=== PATIENT | male | born 1960 | race African-American/Black ===

== ENCOUNTER 2017-09-05 09:04 | Emergency (ER) | payer OTHER ==
[~2017-09-05] VITALS: Ht 182.9 cm; Wt 95.0 kg
[2017-09-05 09:05] VITALS: BP 184/105; PULSE 64; RESP 16; TEMP 97.7; O2SAT 100
[2017-09-05 09:07] VITALS: BP 174/99
[2017-09-05] MEDS ORDERED: TRAM50 PO (09:22)
[2017-09-05] MEDS ORDERED: MOBI15TA PO (09:22)
--- NOTE | 2017-09-05 09:22 | PD ---
HPI Chief Complaint: Musculoskeletal Complaint Time Seen by Provider: 09:15 Travel History International Travel<30 days: No Contact w/Intl Traveler<30days: No Traveled to known affect area: No History of Present Illness HPI 57-year-old male complains of right knee pain. Patient states that the pain started about 2 weeks ago. Patient doing a lot of labor work. Patient denies any direct injury to right knee. Patient states the pain is sharp pain localized to the medial aspect of the right knee. Patient denies any pain radiation. Patient states that the pain is worse with any movement. On a scale of 1-10 the pain is a 7. Patient denies any fever chills. Patient denies a history of rheumatoid arthritis or lupus. Patient denies any history of gout. PFSH Social History Alcohol Use: Yes (4 PACK BEER DAILY) Tobacco Use: Yes (1PPD) Substance Use: No Allergies-Medications (Allergen,Severity, Reaction): Coded Allergies: No Known Allergies (Unverified Adverse Reaction, Unknown, 09/05/17) Reported Meds & Prescriptions Reported Meds & Active Scripts Active Ultram (Tramadol HCl) 50 Mg Tab 50 Mg PO Q6H PRN Mobic (Meloxicam) 15 Mg Tab 15 Mg PO DAILY Review of Systems General / Constitutional: No: Fever Eyes: No: Visual changes HENT: No: Headaches Cardiovascular: No: Chest Pain or Discomfort Respiratory: No: Shortness of Breath Gastrointestinal: No: Abdominal Pain Genitourinary: No: Dysuria Musculoskeletal: Positive: Pain Skin: No Rash Neurologic: No: Weakness Psychiatric: No: Depression Endocrine: No: Polydipsia Hematologic/Lymphatic: No: Easy Bruising Physical Exam Narrative GENERAL: Well-nourished, well-developed patient. SKIN: Focused skin assessment warm/dry. HEAD: Normocephalic. EYES: No scleral icterus. No injection or drainage. NECK: Supple, trachea midline. No JVD or lymphadenopathy. CARDIOVASCULAR: Regular rate and rhythm without murmurs, gallops, or rubs. RESPIRATORY: Breath sounds equal bilaterally. No accessory muscle use. GASTROINTESTINAL: Abdomen soft, non-tender, nondistended. MUSCULOSKELETAL: No cyanosis, or edema. BACK: Nontender without obvious deformity. No CVA tenderness. Patient has moderate tenderness on palpation medial collateral ligament of the right knee. Full range of motion knee. Joints stable. No effusion noted. Data Data Last Documented VS Vital Signs Date Time Temp Pulse Resp B/P (MAP) Pulse Ox O2 Delivery O2 Flow Rate FiO2 09/05/17 09:07 174/99 (124) 09/05/17 09:05 97.7 64 16 100 Orders Orders Knee, Ltd (1 Or 2vws) (09/05/17 09:15) MDM Medical Decision Making Medical Screen Exam Complete: Yes Emergency Medical Condition: Yes Interpretation(s) Last Impressions Knee X-Ray 09/05/17914 Signed Impressions: Service Date/Time: Tuesday, September 05, 2017 09:25 - CONCLUSION: Mild osteoarthritis without fracture. Ciro Winston MD Differential Diagnosis Differential diagnosis including sprain, fracture, dislocation. Narrative Course 57-year-old male with right knee pain. Atraumatic. Roger wrap right knee. Diagnosis Primary Impression: Injury of ligament of right knee Qualified Codes: S89.91XA - Unspecified injury of right lower leg, initial encounter Patient Instructions: General Instructions Additional Instructions: Take medications as needed for pain. Follow up with an orthopedist if persistent problem. Med/Other Pt SpecificInfo: Prescription(s) given Scripts Tramadol (Ultram) 50 Mg Tab 50 MG PO Q6H Y for PAIN, #12 TAB 0 Refills Prov: Seng Alvarado MD 09/05/17 Meloxicam (Mobic) 15 Mg Tab 15 MG PO DAILY for Pain, #20 TAB 0 Refills Prov: Seng Alvarado MD 09/05/17 Disposition: 01 DISCHARGE HOME Condition: Stable Seng Alvarado MD Sep 05, 2017 09:22
--- NOTE | 2017-09-05 09:40 | RADRPT ---
EXAM DATE/TIME: 09/05/2017 09:25 [facility] COMPARISON: No previous studies available for comparison. INDICATIONS : Pain from twisting motion. MEDICAL HISTORY : None. SURGICAL HISTORY : None. ENCOUNTER: Initial ACUITY: 2 weeks PAIN SCORE: 5/10 LOCATION: Entire knee. FINDINGS: Two view examination of the right knee demonstrates no evidence of fracture or dislocation. Mild tri compartmental osteoarthritis. Bony mineralization is normal. The suprapatellar soft tissues have a n ormal configuration. CONCLUSION: Mild osteoarthritis without fracture. Ciro Winston MD on September 05, 2017 at 9:37 Board Certified Radiologist. This report was verified electronically.
== END 2017-09-05 10:11 | disposition home or self-care (01) ==
LOC: NEPD 09:04
DX: S89.91XA Unspecified injury of right lower leg, initial encounter (principal); M17.11 Unilateral primary osteoarthritis, right knee; F17.200 Nicotine dependence, unspecified, uncomplicated; X58.XXXA Exposure to other specified factors, initial encounter; Z79.899 Other long term (current) drug therapy
CPT/HCPCS: 73560; 99284

== ENCOUNTER 2017-09-27 17:18 | Observation (INO) | payer OTHER ==
[~2017-09-27] VITALS: Ht 185.4 cm; Wt 98.0 kg
[~2017-09-27 17:18] MED LIST: MOBI15TA PO; TRAM50 PO
[2017-09-27 17:21] VITALS: BP 175/105; PULSE 89; RESP 16; TEMP 98.5; O2SAT 97
--- NOTE | 2017-09-27 17:31 | PD ---
HPI Chief Complaint: Chest Pain Time Seen by Provider: 17:27 Travel History International Travel<30 days: No Contact w/Intl Traveler<30days: No Traveled to known affect area: No History of Present Illness HPI 57-year-old male with history of alcohol dependency, presents to emergency department for evaluation of left-sided chest pain acute onset 20 minutes ago. Patient states that it started substernally and then radiated across his left chest to his axilla area. It persisted for about 10 minutes. It was sharp and crushing in nature. He did not experience any lightheadedness or diaphoresis. He had no shortness of breath. He cannot think of any exacerbating or alleviating factors. He states he has experienced this one time before, but did not seek evaluation for it. Denies any recent illnesses, fever, or chills. He is currently not having any pain. Denies any illicit drug use. He has no other symptoms to report. PFSH Past Medical History Medical History: Denies Significant Hx Social History Alcohol Use: Yes (4 PACK BEER DAILY) Tobacco Use: Yes (1PPD) Substance Use: No Allergies-Medications (Allergen,Severity, Reaction): Coded Allergies: No Known Allergies (Unverified Adverse Reaction, Unknown, 09/27/17) Reported Meds & Prescriptions Reported Meds & Active Scripts Active Ultram (Tramadol HCl) 50 Mg Tab 50 Mg PO Q6H PRN Mobic (Meloxicam) 15 Mg Tab 15 Mg PO DAILY Review of Systems Except as stated in HPI: all other systems reviewed are Neg Physical Exam Narrative GENERAL: Well-nourished male patient, in no acute distress. SKIN: Focused skin assessment warm/dry. HEAD: Atraumatic. Normocephalic. EYES: Pupils equal and round. No scleral icterus. No injection or drainage. ENT: No nasal bleeding or discharge. Mucous membranes pink and moist. NECK: Trachea midline. No JVD. CARDIOVASCULAR: Regular rate and rhythm. No murmur appreciated. RESPIRATORY: No accessory muscle use. Clear to auscultation. Breath sounds equal bilaterally. GASTROINTESTINAL: Abdomen soft, non-tender, nondistended. Hepatic and splenic margins not palpable. MUSCULOSKELETAL: No obvious deformities. No clubbing. No cyanosis. No edema. NEUROLOGICAL: Awake and alert. No obvious cranial nerve deficits. Motor grossly within normal limits. Normal speech. PSYCHIATRIC: Appropriate mood and affect; insight and judgment normal. Data Data Last Documented VS Vital Signs Date Time Temp Pulse Resp B/P (MAP) Pulse Ox O2 Delivery O2 Flow Rate FiO2 09/27/17 18:50 79 20 176/99 (124) 100 Nasal Cannula 3.00 09/27/17 17:21 98.5 Orders Orders Electrocardiogram (09/27/17 17:31) Basic Metabolic Panel (Bmp) (09/27/17 17:31) Ckmb (Isoenzyme) Profile (09/27/17 17:31) Complete Blood Count With Diff (09/27/17 17:31) Magnesium (Mg) (09/27/17 17:31) Prothrombin Time / Inr (Pt) (09/27/17 17:31) Act Partial Throm Time (Ptt) (09/27/17 17:31) Troponin I (09/27/17 17:31) Lipase (09/27/17 17:31) Chest, Single Ap (09/27/17 17:31) Ecg Monitoring (09/27/17 17:31) Bilateral Bp Monitoring (09/27/17 17:31) Iv Access Insert/Monitor (09/27/17 17:31) Oximetry (09/27/17 17:31) Oxygen Administration (09/27/17 17:31) Aspirin Chew (Aspirin Chew) (09/27/17 17:45) Sodium Chloride 0.9% Flush (Ns Flush) (09/27/17 17:45) Sodium Chlor 0.9% 1000 Ml Inj (Ns 1000 M (09/27/17 17:45) CKMB (09/27/17 17:40) CKMB% (09/27/17 17:40) Sodium Chlor 0.9% 1000 Ml Inj (Ns 1000 M (09/27/17 19:00) Admit Order (Ed Use Only) (09/27/17 19:12) Activity Bed Rest With Brp (09/27/17 19:12) Notify Dr: Other .PRN (09/27/17 19:12) Notify Parameters (09/27/17 19:12) Resp Oxygen Nasal Cannula (09/27/17 ) Diet Npo (09/28/17 Breakfast) Diet Heart Healthy (09/27/17 Dinner) Ckmb (Isoenzyme) Profile (09/27/17 20:40) Ckmb (Isoenzyme) Profile (09/27/17 23:40) Troponin I (09/27/17 20:40) Troponin I (09/27/17 23:40) Electrocardiogram (09/27/17 20:40) Electrocardiogram (09/27/17 23:40) ^ Obtain (09/27/17 19:12) Sodium Chloride 0.9% Flush (Ns Flush) (09/27/17 19:15) Sodium Chloride 0.9% Flush (Ns Flush) (09/27/17 21:00) Acetaminophen (Tylenol) (09/27/17 19:15) Ondansetron Inj (Zofran Inj) (09/27/17 19:15) Nitroglycerin Sl (Nitrostat Sl) (09/27/17 19:15) Claim Inspector / Telemetry ABHINAV.Q8H (09/27/17 19:12) Bilateral/Knee High ABHINAV.QSHIFT (09/27/17 19:12) Vital Signs (Adult) Q4H (09/27/17 19:12) Cardiac Rhythm .As Directed (09/27/17 19:12) Labs Laboratory Tests Test 09/27/17 17:40 White Blood Count 7.4 TH/MM3 Red Blood Count 5.57 MIL/MM3 Hemoglobin 13.5 GM/DL Hematocrit 41.0 % Mean Corpuscular Volume 73.5 FL Mean Corpuscular Hemoglobin 24.3 PG Mean Corpuscular Hemoglobin Concent 33.0 % Red Cell Distribution Width 15.2 % Platelet Count 182 TH/MM3 Mean Platelet Volume 8.3 FL Neutrophils (%) (Auto) 59.3 % Lymphocytes (%) (Auto) 29.7 % Monocytes (%) (Auto) 10.4 % Eosinophils (%) (Auto) 0.1 % Basophils (%) (Auto) 0.5 % Neutrophils # (Auto) 4.4 TH/MM3 Lymphocytes # (Auto) 2.2 TH/MM3 Monocytes # (Auto) 0.8 TH/MM3 Eosinophils # (Auto) 0.0 TH/MM3 Basophils # (Auto) 0.0 TH/MM3 CBC Comment DIFF FINAL Differential Comment Prothrombin Time 9.9 SEC Prothromb Time International Ratio 1.0 RATIO Activated Partial Thromboplast Time 25.9 SEC Blood Urea Nitrogen 14 MG/DL Creatinine 1.00 MG/DL Random Glucose 119 MG/DL Calcium Level 9.0 MG/DL Magnesium Level 2.4 MG/DL Sodium Level 142 MEQ/L Potassium Level 3.9 MEQ/L Chloride Level 109 MEQ/L Carbon Dioxide Level 25.5 MEQ/L Anion Gap 8 MEQ/L Estimat Glomerular Filtration Rate 93 ML/MIN Total Creatine Kinase 541 U/L Creatine Kinase MB 5.3 NG/ML Creatine Kinase MB % 1.0 % Troponin I LESS THAN 0.02 NG/ML Lipase 408 U/L MDM Medical Decision Making Medical Screen Exam Complete: Yes Emergency Medical Condition: Yes Medical Record Reviewed: Yes Differential Diagnosis ACS versus chest wall pain versus pleuritic pain versus esophageal spasm versus pancreatitis Narrative Course 57-year-old male presents to emergency department for evaluation left-sided chest pain, lasting about 10 minutes that began about 20 minutes prior to arrival. Patient has no cardiac history. This has happened before but he did not seek follow-up. Currently he is having no pain. He appears well. He is hypertensive, and has been told this in the past however he takes no medication for this. Laboratory Tests Test 09/27/17 17:40 White Blood Count 7.4 TH/MM3 Red Blood Count 5.57 MIL/MM3 Hemoglobin 13.5 GM/DL Hematocrit 41.0 % Mean Corpuscular Volume 73.5 FL Mean Corpuscular Hemoglobin 24.3 PG Mean Corpuscular Hemoglobin Concent 33.0 % Red Cell Distribution Width 15.2 % Platelet Count 182 TH/MM3 Mean Platelet Volume 8.3 FL Neutrophils (%) (Auto) 59.3 % Lymphocytes (%) (Auto) 29.7 % Monocytes (%) (Auto) 10.4 % Eosinophils (%) (Auto) 0.1 % Basophils (%) (Auto) 0.5 % Neutrophils # (Auto) 4.4 TH/MM3 Lymphocytes # (Auto) 2.2 TH/MM3 Monocytes # (Auto) 0.8 TH/MM3 Eosinophils # (Auto) 0.0 TH/MM3 Basophils # (Auto) 0.0 TH/MM3 CBC Comment DIFF FINAL Differential Comment Prothrombin Time 9.9 SEC Prothromb Time International Ratio 1.0 RATIO Activated Partial Thromboplast Time 25.9 SEC Blood Urea Nitrogen 14 MG/DL Creatinine 1.00 MG/DL Random Glucose 119 MG/DL Calcium Level 9.0 MG/DL Magnesium Level 2.4 MG/DL Sodium Level 142 MEQ/L Potassium Level 3.9 MEQ/L Chloride Level 109 MEQ/L Carbon Dioxide Level 25.5 MEQ/L Anion Gap 8 MEQ/L Estimat Glomerular Filtration Rate 93 ML/MIN Total Creatine Kinase 541 U/L Creatine Kinase MB 5.3 NG/ML Creatine Kinase MB % 1.0 % Troponin I LESS THAN 0.02 NG/ML Lipase 408 U/L Last Impressions Chest X-Ray 09/27/17 1731 Signed Impressions: Service Date/Time: Wednesday, September 27, 2017 17:59 - CONCLUSION: Mild chronic cardiac silhouette enlargement. No acute cardiopulmonary disease identified. Onesimo Castillo MD Labs and radiology results are reviewed. I discussed this with my attending physician. We feel it is in his best interest to be admitted observation of the chest pain center for further evaluation and observation. Plan is discussed with the patient. He is concerned about missing work tomorrow, but at this time agrees with this plan of care. Diagnosis Primary Impression: Chest pain Qualified Codes: R07.9 - Chest pain, unspecified Admitting Information Admitting Physician Requests: Observation Condition: Stable NairMary valero LUIS EDUARDO Sep 27, 2017 17:31
[2017-09-27 17:35] VITALS: O2SAT 96
[2017-09-27] MEDS ORDERED: ASPIRIN 81 MG CHEW TAB PO ONE (17:45)
[2017-09-27] MEDS ORDERED: SODIUM CHLORIDE 0.9% FLUSH 10 ML FLUSH IVF PRN (17:45)
[2017-09-27] MEDS ORDERED: SODIUM CHLOR 0.9% 1000 ML INJ 1,000 ML IV ONE ×2 (17:45→19:00)
[2017-09-27 17:57] LABS: AUTOMATED NEUTROPHIL # 4.4 TH/MM3 (1.8-7.7); BASOPHIL % 0.5 % (0.0-2.0); EOSINOPHIL % 0.1 % (0.0-4.0); HEMOGLOBIN 13.5 GM/DL (13.0-17.0); LYMPH % 29.7 % (9.0-44.0); LYMPHOCYTE # 2.2 TH/MM3 (1.0-4.8); MEAN CELL VOLUME 73.5 FL (80.0-100.0); MEAN CORPUSCULAR HEMOGLOBIN 24.3 PG (27.0-34.0); MEAN PLATELET VOLUME 8.3 FL (7.0-11.0); MONO % 10.4 % (0.0-8.0); MONOCYTE # 0.8 TH/MM3 (0-0.9); NEUT % 59.3 % (16.0-70.0); PLATELET COUNT 182 TH/MM3 (150-450); RED BLOOD COUNT 5.57 MIL/MM3 (4.50-5.90); RED CELL DISTRIBUTION WIDTH 15.2 % (11.6-17.2); WHITE BLOOD COUNT 7.4 TH/MM3 (4.0-11.0)
[2017-09-27 18:06] LABS: PROTHROMBIN TIME - PATIENT 9.9 SEC (9.8-11.6)
[2017-09-27 18:24] LABS: TROPONIN I LESS THAN 0.02 NG/ML (0.02-0.05)
--- NOTE | 2017-09-27 18:24 | RADRPT ---
EXAM DATE/TIME: 09/27/2017 17:59 [facility] COMPARISON: CHEST SINGLE AP, February 02, 2014, 16:13. INDICATIONS : Chest pain starting today MEDICAL HISTORY : None. SURGICAL HISTORY : None. ENCOUNTER: Initial ACUITY: 1 day PAIN SCORE: 5/10 LOCATION: Bilateral chest FINDINGS: Single AP view of the chest. The lungs are clear. Mild cardiac silhouette enlargement unchanged. No e vidence of pleural effusion or pneumothorax. CONCLUSION: Mild chronic cardiac silhouette enlargement. No acute cardiopulmonary disease iden tified. Onesimo Castillo MD on September 27, 2017 at 18:21 Board Certified Radiologist. This report was verified electronically.
[2017-09-27 18:48] LABS: BICARBONATE 25.5 MEQ/L (21.0-32.0); BLOOD UREA NITROGEN 14 MG/DL (7-18); CHLORIDE 109 MEQ/L (98-107); GLOMERULAR FILTRATION RATE 93 ML/MIN (>89); GLUCOSE,RANDOM 119 MG/DL (74-106); LIPASE 408 U/L (73-393); MAGNESIUM 2.4 MG/DL (1.5-2.5); SODIUM (NA) 142 MEQ/L (136-145)
[2017-09-27 18:50] VITALS: BP 176/99; O2SAT 100
[2017-09-27] MEDS ORDERED: ONDANSETRON HCL 4 MG/2 ML VIAL IV PUSH PRN (19:15)
[2017-09-27] MEDS ORDERED: NITROGLYCERIN 0.4 MG SL 25 TABS/BTL SL PRN (19:15)
[2017-09-27] MEDS ORDERED: ACETAMINOPHEN 500 MG CPLT PO PRN (19:15)
[2017-09-27] MEDS ORDERED: SODIUM CHLORIDE 0.9% FLUSH 10 ML FLUSH IV FLUSH PRN (19:15)
[2017-09-27 20:00] VITALS: O2SAT 98
[2017-09-27] MEDS: SODIUM CHLORIDE 0.9% FLUSH 10 ML FLUSH IV FLUSH SCH (21:00)
[2017-09-27 21:03] VITALS: BP 163/96; PULSE 70; RESP 18; TEMP 97.4; O2SAT 98
[2017-09-27 21:16] VITALS: PULSE 59
[2017-09-27 21:53] LABS: TROPONIN I LESS THAN 0.02 NG/ML (0.02-0.05)
[2017-09-28] VITALS (10 sets, daily range): BP systolic 154–200; BP diastolic 91–110; PULSE 55–81; RESP 18; TEMP 98–98.5; O2SAT 95–99
[2017-09-28 00:57] LABS: TROPONIN I LESS THAN 0.02 NG/ML (0.02-0.05)
[2017-09-28] MEDS ORDERED: amLODIPine BESYLATE 5 MG TAB PO SCH (05:45)
--- NOTE | 2017-09-28 07:52 | EKG ---
Date Performed: 09/27/2017 Time Performed: 17:33:57 PTAGE: 57 years EKG: Sinus rhythm WITH FIRST DEGREE AV BLOCK ABNORMAL ECG Since PREVIOUS TRACING , no significant change noted PREVIOUS TRACIN02/02/2014 16.12 DOCTOR: Reba Vera Interpretating Date/Time 09/28/2017 07:50:38
--- NOTE | 2017-09-28 07:53 | EKG ---
Date Performed: 09/27/2017 Time Performed: 21:18:56 PTAGE: 57 years EKG: Sinus rhythm WITH FIRST DEGREE AV BLOCK MINIMAL VOLTAGE CRITERIA FOR LVH, CONSIDER NORMAL VARIANT ABNORMAL ECG Si nce PREVIOUS TRACING , no significant change noted PREVIOUS TRACIN09/27/2017 17.33 DOCTOR: Reba Vera Interpretating Date/Time 09/28/2017 07:51:36
--- NOTE | 2017-09-28 07:55 | EKG ---
Date Performed: 09/28/2017 Time Performed: 00:03:39 PTAGE: 57 years EKG: Sinus rhythm NORMAL ECG Since PREVIOUS TRACING , no significant change noted PREVIOUS TRACIN09/27/2017 21.18 DOCTOR: Reba Vera Interpretating Date/Time 09/28/2017 07:53:11
--- NOTE | 2017-09-28 08:58 | HHI.HP ---
HPI Primary Care Physician No Primary Care Physician Chief Complaint Chest pain History of Present Illness This is a 57-year-old male that presents to ED via private vehicle with a complaint of developing a right-sided chest discomfort yesterday lasted between 30 seconds and 2 minutes. Had no associated shortness breath, nausea, or diaphoresis. He was on not doing any activity when this occurred. Has history of any exertional discomfort. Had no other symptoms. The discomfort has not recurred. Denies recent illness. Denies fevers or chills. He denies history of hypertension however he has been quite hypertensive since being in the ED. Initial blood pressure was 135 or 105 with highest being 192 or 110. Most recent blood pressure reading is 180/108. Patient smokes one plus pack of cigarettes daily. Denies nausea hyperlipidemia, diabetes, CAD. Cannot recall ever having a stress test. Denies family history of CAD. Denies recent illness. Denies recent travel. Review of Systems General: Patient denies fevers, chills recent, and recent travel HEENT: Patient denies headache, sore throat, difficulty swallowing. Cardiovascular: Has the chest discomfort as mentioned above. Denies sensation of heart beating rapidly or irregularly. No syncope. Denies diaphoresis. Respiratory: Denies shortness of breath or inspirational chest discomfort. Denies coughing wheezing or hemoptysis. GI: Patient denies nausea, vomiting, diarrhea, abdominal pain, bloody stools. Musculoskeletal: Patient denies joint pain or edema. Denies calf pain or edema. Neurovascular: Patient denies numbness, tingling, weakness in extremities. Denies headache. Endocrine: Denies polyuria and polydipsia. Hematologic: Denies easy bruising. Skin: Denies rash or itching. Past Family Social History Allergies: Coded Allergies: No Known Allergies (Unverified Adverse Reaction, Unknown, 09/27/17) Past Medical History Denies hypertension, hyperlipidemia, diabetes, or CAD. Patient continues to abuse tobacco products. Past Surgical History Noncontributory. Reported Medications Reported Meds & Active Scripts Active Ultram (Tramadol HCl) 50 Mg Tab 50 Mg PO Q6H PRN Mobic (Meloxicam) 15 Mg Tab 15 Mg PO DAILY Active Ordered Medications Current Medications Medications (Trade) Dose Ordered Sig/Emanuel Route Start Time Stop Time Status Last Admin (NS Flush) 2 ml UNSCH PRN IVF 09/27/17 17:45 (NS Flush) 2 ml UNSCH PRN IV FLUSH 09/27/17 19:15 (NS Flush) 2 ml BID IV FLUSH 09/27/17 21:00 09/27/17 21:00 (Tylenol) 500 mg Q4H PRN PO 09/27/17 19:15 (Zofran Inj) 4 mg Q6H PRN IV PUSH 09/27/17 19:15 (Nitrostat Sl) 0.4 mg Q5M PRN SL 09/27/17 19:15 (Norvasc) 10 mg DAILY PO 09/28/17 09:00 09/28/17 08:23 Family History Denies family history of CAD. Social History Smokes little more than a pack of cigarettes daily for 35 years. Has on average 4 beers a day. Denies illicit drugs. Physical Exam Vital Signs Vital Signs Date Time Temp Pulse Resp B/P (MAP) Pulse Ox O2 Delivery O2 Flow Rate FiO2 09/28/17 07:11 98.0 81 18 180/108 (132) 98 09/28/17 04:35 98.5 72 18 192/110 (137) 96 09/28/17 03:55 71 09/28/17 00:50 98.2 79 18 154/91 (112) 95 09/28/17 00:48 77 09/27/17 21:16 59 09/27/17 21:03 97.4 70 18 163/96 (118) 98 09/27/17 20:00 98 Nasal Cannula 2.00 09/27/17 18:50 79 20 176/99 (124) 100 Nasal Cannula 3.00 09/27/17 17:35 96 Room Air 09/27/17 17:35 96 Room Air 09/27/17 17:21 98.5 89 16 175/105 (128) 97 Physical Exam GENERAL: This is a well-nourished, well-developed patient, in no apparent distress. Patient speaks in clear complete sentences. Patient is pleasant. HEENT: Head is atraumatic and normocephalic. Neck is supple without lymphadenopathy and trachea is midline. No JVD or carotid bruits. CARDIOVASCULAR: Regular rate and rhythm without murmurs, gallops, or rubs. RESPIRATORY: Expiratory wheezes at the bases that cleared after coughing. Breath sounds equal bilaterally. No rales, or rhonchi. Chest wall is nontender. No use of accessory muscles. GASTROINTESTINAL: Abdomen is nontender, nondistended. Abdomen soft. No obvious pulsatile mass or bruit. No CVA tenderness. Strong femoral pulses bilaterally. Normal bowel sounds in all quadrants. MUSCULOSKELETAL: Patient is moving upper and lower extremities freely. No calf tenderness or edema, no Homans sign. Strong pulses in upper and lower extremities. NEUROLOGICAL: Patient is alert and oriented. Cranial nerves 2-12 are grossly intact. No focal deficits and speech is clear. SKIN: No rash and turgor is normal. Laboratory Laboratory Tests Test 09/27/17 17:40 09/27/17 20:50 09/28/17 00:30 White Blood Count 7.4 Red Blood Count 5.57 Hemoglobin 13.5 Hematocrit 41.0 Mean Corpuscular Volume 73.5 Mean Corpuscular Hemoglobin 24.3 Mean Corpuscular Hemoglobin Concent 33.0 Red Cell Distribution Width 15.2 Platelet Count 182 Mean Platelet Volume 8.3 Neutrophils (%) (Auto) 59.3 Lymphocytes (%) (Auto) 29.7 Monocytes (%) (Auto) 10.4 Eosinophils (%) (Auto) 0.1 Basophils (%) (Auto) 0.5 Neutrophils # (Auto) 4.4 Lymphocytes # (Auto) 2.2 Monocytes # (Auto) 0.8 Eosinophils # (Auto) 0.0 Basophils # (Auto) 0.0 CBC Comment DIFF FINAL Differential Comment Prothrombin Time 9.9 Prothromb Time International Ratio 1.0 Activated Partial Thromboplast Time 25.9 Blood Urea Nitrogen 14 Creatinine 1.00 Random Glucose 119 Calcium Level 9.0 Magnesium Level 2.4 Sodium Level 142 Potassium Level 3.9 Chloride Level 109 Carbon Dioxide Level 25.5 Anion Gap 8 Estimat Glomerular Filtration Rate 93 Total Creatine Kinase 541 524 414 Creatine Kinase MB 5.3 4.6 4.2 Creatine Kinase MB % 1.0 0.9 1.0 Troponin I LESS THAN 0.02 LESS THAN 0.02 LESS THAN 0.02 Lipase 408 Result Diagram: 09/27/17 17409/27/17 174 Imaging Last 48 hours Impressions Chest X-Ray 09/27/17 1731 Signed Impressions: Service Date/Time: Wednesday, September 27, 2017 17:59 - CONCLUSION: Mild chronic cardiac silhouette enlargement. No acute cardiopulmonary disease identified. Onesimo Castillo MD Course EKGs have been sinus rhythm without significant ST segment depressions or elevations. Caprini VTE Risk Assessment Caprini VTE Risk Assessment: No/Low Risk (score <= 1) Caprini Risk Assessment Model Point Value = 1 Point Value = 2 Point Value = 3 Point Value = 5 Age 41-60 Minor surgery BMI > 25 kg/m2 Swollen legs Varicose veins or History of unexplained or recurrent spontaneous Oral contraceptives or hormone replacement Sepsis (< 1 month) Serious lung disease, including pneumonia (< 1 month) Abnormal pulmonary function Acute myocardial infarction Congestive heart failure (< 1 month) History of inflammatory bowel disease Medical patient at bed rest Age 61-74 Arthroscopic surgery Major open surgery (> 45 min) Laparoscopic surgery (> 45 min) Malignancy Confined to bed (> 72 hours) Immobilizing plaster cast Central venous access Age >= 75 History of VTE Family history of VTE Factor V Leiden Prothrombin [id number] Lupus anticoagulant Anticardiolipin antibodies Elevated serum homocysteine Heparin-induced thrombocytopenia Other congenital or acquired thrombophilia Stroke (< 1 month) Elective arthroplasty Hip, pelvis, or leg fracture Acute spinal cord injury (< 1 month) Prophylaxis Regimen Total Risk Factor Score Risk Level Prophylaxis Regimen 0-1 Low Early ambulation 2 Moderate Order ONE of the following: *Sequential Compression Device (SCD) *Heparin 5000 units SQ BID 3-4 Higher Order ONE of the following medications: *Heparin 5000 units SQ TID *Enoxaparin/Lovenox 40 mg SQ daily (WT < 150 kg, CrCl > 30 mL/min) *Enoxaparin/Lovenox 30 mg SQ daily (WT < 150 kg, CrCl > 10-29 mL/min) *Enoxaparin/Lovenox 30 mg SQ BID (WT < 150 kg, CrCl > 30 mL/min) AND/OR *Sequential Compression Device (SCD) 5 or more Highest Order ONE of the following medications: *Heparin 5000 units SQ TID (Preferred with Epidurals) *Enoxaparin/Lovenox 40 mg SQ daily (WT < 150 kg, CrCl > 30 mL/min) *Enoxaparin/Lovenox 30 mg SQ daily (WT < 150 kg, CrCl > 10-29 mL/min) *Enoxaparin/Lovenox 30 mg SQ BID (WT < 150 kg, CrCl > 30 mL/min) AND *Sequential Compression Device (SCD) Assessment and Plan Assessment and Plan * Chest pain: Patient has had serial cardiac enzymes and EKGs for ruling out purposes. He has been seen by Dr. Vera cardiology and the chest pain center and will undergo a Jluis protocol ETT after his blood pressure is under control. He'll be discharged home if the stress test was nonischemic with instructions to follow-up with PCP and return to ED for interval issues. * Hypertension: We'll start amlodipine. He will need to follow-up with PCP. * Tobacco abuse: Patient has been counseled on importance of smoking cessation. Patient is stable time. He is agreeable to this plan. Qasim Mansfield Sep 28, 2017 08:58
[2017-09-28] MEDS: SODIUM CHLORIDE 0.9% FLUSH 10 ML FLUSH IV FLUSH SCH (09:22)
[2017-09-28] MEDS ORDERED: cloNIDine HCL 0.1 MG TAB PO ONE ×2 (09:30→11:15)
[2017-09-28] MEDS ORDERED: AMLO10TA2 PO (12:17)
--- NOTE | 2017-09-28 12:17 | HHI.DCPOC ---
Discharge Care Plan Diagnosis: (1) Chest pain (2) Hypertension (3) Tobacco abuse Goals to Promote Your Health * To prevent worsening of your condition and complications * To maintain your health at the optimal level Directions to Meet Your Goals Take your medications as prescribed Follow your dietary instruction Follow activity as directed Keep your appointments as scheduled Take your immunizations and boosters as scheduled If your symptoms worsen call your PCP, if no PCP go to Urgent Care Center or Emergency Room Smoking is Dangerous to Your Health. Avoid second hand smoke Call the 24-hour hour crisis hotline for domestic abuse at aQsim Mansfield Sep 28, 2017 12:17
--- NOTE | 2017-09-29 16:38 | TR ---
Date Performed: 09/28/2017 Time Performed: 11:56:47 DOCTOR: Onesimo Rodas DRUG LIST: CLINICAL HISTORY: CHEST PAIN REASON FOR TEST: REASON FOR ENDING: OBSERVATION: CONCLUSION: ARSEN PROTOCOL. NO CP. TEST STOPPED AFTER EXCEEDING GOAL HR SECONDARY YO SOB AND LEG FATIGUE.Maximum PD=283 % Max HR Achieved=88.0% Maximum CS=782/80 Total Exercise Time=5:30 COMMENTS: Patient exercised using the Arsen protocol. No electrocardiographic changes were seen to suggest ischemia. Hemodynamic response to exercise was normal. No significant arrhythmia was prese nt.
== END 2017-09-28 12:53 | disposition home or self-care (01) ==
LOC: NEPC 17:18 → NEDA 19:15 → NEPGCP 19:53
PROVIDERS: ADMIT Internal Medicine Cardiovascular Disease; ATTEND Internal Medicine Cardiovascular Disease
DX: R07.9 Chest pain, unspecified (principal); I10 Essential (primary) hypertension; F17.210 Nicotine dependence, cigarettes, uncomplicated; F10.20 Alcohol dependence, uncomplicated; Z79.899 Other long term (current) drug therapy; I44.0 Atrioventricular block, first degree
CPT/HCPCS: 71010; 80048; 82550; 82552; 83690; 83735; 84484; 85025; 85610; 85730; 93005; 93017; 99285; G0378; J7030

== ENCOUNTER 2018-02-05 07:03 | Emergency (ER) | payer OTHER ==
[~2018-02-05] VITALS: Ht 185.4 cm; Wt 97.5 kg
[~2018-02-05 07:03] MED LIST changes: +AMLO10TA2 PO; -MOBI15TA PO; -TRAM50 PO
[2018-02-05 07:05] VITALS: BP 159/88; PULSE 84; RESP 18; TEMP 98.1; O2SAT 98
--- NOTE | 2018-02-05 07:43 | PD ---
HPI Chief Complaint: Edema Time Seen by Provider: 07:41 Travel History International Travel<30 days: No Contact w/Intl Traveler<30days: No Traveled to known affect area: No History of Present Illness HPI 57-year-old male patient with history of hypertension, presents to the ER today for 1 month history of intermittent leg swelling, started on his own, he denies injuries. He denies any chest pains, shortness of breath, or any other symptoms. He has also been taking blood pressure medications for a month but he does not know what it is. He does not have a primary care doctor, got blood pressure medications from the ER. Modifying Factors: None Associated Signs & Symptoms: Bilateral leg swelling Risk Factors: None PFSH Past Medical History Hypertension: Yes Social History Alcohol Use: Yes Tobacco Use: No Substance Use: No Allergies-Medications (Allergen,Severity, Reaction): Coded Allergies: No Known Allergies (Unverified Adverse Reaction, Unknown, 02/05/18) Reported Meds & Prescriptions Reported Meds & Active Scripts Active Amlodipine (Amlodipine Besylate) 10 Mg Tab 10 Mg PO DAILY Review of Systems Except as stated in HPI: all other systems reviewed are Neg Physical Exam Narrative GENERAL: Well-developed middle-aged -[place] male patient currently in mild distress. Awake and oriented 3. SKIN: Focused skin assessment warm/dry. HEAD: Atraumatic. Normocephalic. EYES: Pupils equal and round. No scleral icterus. No injection or drainage. ENT: No nasal bleeding or discharge. Mucous membranes pink and moist. NECK: Trachea midline. No JVD. Supple. CARDIOVASCULAR: Regular rate and rhythm. No murmur appreciated. RESPIRATORY: No accessory muscle use. Clear to auscultation. Breath sounds equal bilaterally. GASTROINTESTINAL: Abdomen soft, non-tender, nondistended. Hepatic and splenic margins not palpable. MUSCULOSKELETAL: No obvious deformities. No clubbing. No cyanosis. +1 pitting edema both legs. NEUROLOGICAL: Awake and alert. No obvious cranial nerve deficits. Motor grossly within normal limits. Normal speech. PSYCHIATRIC: Appropriate mood and affect; insight and judgment normal. Data Data Last Documented VS Vital Signs Date Time Temp Pulse Resp B/P (MAP) Pulse Ox O2 Delivery O2 Flow Rate FiO2 02/05/18 07:05 98.1 84 18 159/88 (111) 98 Orders Orders Complete Blood Count With Diff (02/05/18 07:41) Basic Metabolic Panel (Bmp) (02/05/18 07:41) B-Type Natriuretic Peptide (02/05/18 07:41) Prothrombin Time / Inr (Pt) (02/05/18 07:41) Act Partial Throm Time (Ptt) (02/05/18 07:41) Us Leg Venous Doppler Bilat (02/05/18 07:41) Ed Discharge Order (02/05/18 12:04) Labs Laboratory Tests Test 02/05/18 04:45 White Blood Count 5.1 TH/MM3 Red Blood Count 5.42 MIL/MM3 Hemoglobin 12.8 GM/DL Hematocrit 39.7 % Mean Corpuscular Volume 73.3 FL Mean Corpuscular Hemoglobin 23.5 PG Mean Corpuscular Hemoglobin Concent 32.1 % Red Cell Distribution Width 14.9 % Platelet Count 221 TH/MM3 Mean Platelet Volume 8.0 FL Neutrophils (%) (Auto) 34.1 % Lymphocytes (%) (Auto) 41.5 % Monocytes (%) (Auto) 13.6 % Eosinophils (%) (Auto) 9.8 % Basophils (%) (Auto) 1.0 % Neutrophils # (Auto) 1.7 TH/MM3 Lymphocytes # (Auto) 2.1 TH/MM3 Monocytes # (Auto) 0.7 TH/MM3 Eosinophils # (Auto) 0.5 TH/MM3 Basophils # (Auto) 0.1 TH/MM3 CBC Comment DIFF FINAL Differential Comment Prothrombin Time 10.1 SEC Prothromb Time International Ratio 1.0 RATIO Activated Partial Thromboplast Time 26.1 SEC Blood Urea Nitrogen 12 MG/DL Creatinine 0.95 MG/DL Random Glucose 119 MG/DL Calcium Level 8.9 MG/DL Sodium Level 143 MEQ/L Potassium Level 3.8 MEQ/L Chloride Level 108 MEQ/L Carbon Dioxide Level 25.3 MEQ/L Anion Gap 10 MEQ/L Estimat Glomerular Filtration Rate 99 ML/MIN B-Type Natriuretic Peptide 3 PG/ML MDM Medical Decision Making Medical Screen Exam Complete: Yes Emergency Medical Condition: Yes Medical Record Reviewed: Yes Interpretation(s) Laboratory Tests Test 02/05/18 04:45 Hemoglobin 12.8 GM/DL (13.0-17.0) Mean Corpuscular Volume 73.3 FL (80.0-100.0) Mean Corpuscular Hemoglobin 23.5 PG (27.0-34.0) Monocytes (%) (Auto) 13.6 % (0.0-8.0) Eosinophils (%) (Auto) 9.8 % (0.0-4.0) Neutrophils # (Auto) 1.7 TH/MM3 (1.8-7.7) Eosinophils # (Auto) 0.5 TH/MM3 (0-0.4) Random Glucose 119 MG/DL (74-106) Chloride Level 108 MEQ/L (98-107) Last 24 hours Impressions Lower Extremity Ultrasound 02/05/18 0741 Signed Impressions: Service Date/Time: Monday, February 05, 2018 10:21 - CONCLUSION: No DVT is identified within either lower extremity. Ramesh Jeffery MD Differential Diagnosis Dependent leg edema versus medication side effect versus DVT versus CHF Narrative Course Ultrasound shows no signs of DVTs. 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 I have recommended that he keeps his legs up and use some compression stockings to help. Edema is fairly mild. At this point, my plan would be to release him with follow-up to primary care doctor. The plan has been discussed with him and he states understanding. Diagnosis Primary Impression: Hypertension Additional Impression: Leg edema Scripts Amlodipine (Amlodipine) 10 Mg Tab 10 MG PO DAILY for Blood Pressure Management, #30 TAB 0 Refills Prov: Cony Bingham MD 02/05/18 Disposition: 01 DISCHARGE HOME Condition: Stable Cony Bingham MD February 05, 2018 07:43
[2018-02-05 08:00] LABS: AUTOMATED NEUTROPHIL # 1.7 TH/MM3 (1.8-7.7); BASOPHIL # 0.1 TH/MM3 (0-0.2); EOSINOPHIL # 0.5 TH/MM3 (0-0.4); EOSINOPHIL % 9.8 % (0.0-4.0); HEMATOCRIT 39.7 % (39.0-51.0); HEMOGLOBIN 12.8 GM/DL (13.0-17.0); LYMPH % 41.5 % (9.0-44.0); LYMPHOCYTE # 2.1 TH/MM3 (1.0-4.8); MEAN CELL VOLUME 73.3 FL (80.0-100.0); MEAN CORPUSCULAR HEMOGLOBIN 23.5 PG (27.0-34.0); MEAN CORPUSCULAR HGB CONC 32.1 % (32.0-36.0); MONO % 13.6 % (0.0-8.0); MONOCYTE # 0.7 TH/MM3 (0-0.9); NEUT % 34.1 % (16.0-70.0); PLATELET COUNT 221 TH/MM3 (150-450); RED BLOOD COUNT 5.42 MIL/MM3 (4.50-5.90); RED CELL DISTRIBUTION WIDTH 14.9 % (11.6-17.2); WHITE BLOOD COUNT 5.1 TH/MM3 (4.0-11.0)
[2018-02-05 08:10] LABS: PROTHROMBIN TIME - PATIENT 10.1 SEC (9.8-11.6)
[2018-02-05 08:22] LABS: BICARBONATE 25.3 MEQ/L (21.0-32.0); CALCIUM 8.9 MG/DL (8.5-10.1); CREATININE 0.95 MG/DL (0.60-1.30)
--- NOTE | 2018-02-05 11:31 | RADRPT ---
EXAM DATE/TIME: 02/05/2018 10:21 [facility] COMPARISON: No previous studies available for comparison. INDICATIONS : Intermittent bilateral leg swelling x 1 month. MEDICAL HISTORY : Hypertension. SURGICAL HISTORY : Orthopedic surgery - neck and right knee. ENCOUNTER: Initial ACUITY: 1 month PAIN SCORE: 2/10 LOCATION: Bilateral legs. TECHNIQUE: Venous ultrasound of the left and right leg was performed from the inguinal ligament to the proximal calf. Real-time, color Doppler and spectral tracing, compression and augmentation techniques were us ed. FINDINGS: RIGHT LEG: There is normal compressibility of the deep venous system from the inguinal region to the proximal ca lf. No echogenic clot is seen in the lumen of the common femoral, femoral, popliteal, and posterior tibial veins. There is a normal response of the venous system to proximal and distal augmentation an d respiration. LEFT LEG: There is normal compressibility of the deep venous system from the inguinal region to the proximal ca lf. No echogenic clot is seen in the lumen of the common femoral, femoral, popliteal, and posterior tibial veins. There is a normal response of the venous system to proximal and distal augmentation an d respiration. CONCLUSION: No DVT is identified within either lower extremity. Ramesh Jeffery MD on February 05, 2018 at 11:28 Board Certified Radiologist. This report was verified electronically.
[2018-02-05] MEDS ORDERED: AMLO10TA2 PO (12:07)
--- NOTE | 2018-02-06 12:23 | EKG ---
Date Performed: 02/05/2018 Time Performed: 07:15:57 PTAGE: 57 years EKG: Sinus rhythm NORMAL ECG PREVIOUS TRACING : 09/28/2017 00.03 Since the previous tracing, no significant change noted DOCTOR: Miguel Isidro Interpretating Date/Time 02/06/2018 12:21:22
== END 2018-02-05 12:52 | disposition home or self-care (01) ==
LOC: NEPC 07:03
DX: I10 Essential (primary) hypertension (principal); R60.0 Localized edema
CPT/HCPCS: 80048; 83880; 85025; 85610; 85730; 93005; 93970